=== PATIENT | female | born 1965 | race Hispanic/Latino ===

== ENCOUNTER → 2024-11-26 | Outpatient (CLI) | payer OTHER, MEDICARE ==
--- NOTE | 2024-11-29 11:17 | HMCIMG ---
DIGITAL bilateral DIAGNOSTIC MAMMOGRAM Technique: The digital mammographic examination of both breasts in craniocaudal, mediolateral oblique views along with CAD was obtained. History: This is a 59 years year-old female 1, para0 Ab1 . Patient has no family history of breast cancer. Patient has no complaint Reference:Prior mammogram from outside clinic from 07/28/2023 is available.. Breast composition: Breast composition C: The breasts are heterogeneously dense, which may obscure small masses. Finding: The digital mammographic examination of both breasts in craniocaudal and mediolateral oblique view along with CAD demonstrates moderately heterogeneously dense with nodular changes there was seen before of varying sizes. There are solitary dystrophic macrocalcification seen in both breasts some of them associated with this lesion suggesting a degenerating fibroadenoma.. There is no evidence of any dendritic mass, cluster microcalcification or architectural distortion. The retromammary fat appears to be normal. IMPRESSION: Due to moderately heterogeneously nodular densities seen in both breasts I would recommend follow-up bilateral breast sonogram.. FINAL ASSESSMENT: ACR: BI-RAD -0. Incomplete: need additional imaging evaluation. Management: Recall for additional imaging and/or comparison with prior examination(s). Likelihood of Cancer: N/A NOTE: IF A WORK-UP OF THIS PATIENT LEADS TO A BIOPSY, PLEASE FORWARD A COPY OF THE PATHOLOGY REPORT TO OUR OFFICE REQUIRED BY [employer] E[employer]ECTIVE JANUARY 12, 1994. A NEGATIVE MAMMOGRAM SHOULD NOT PRECLUDE BIOPSY OF A CLINICALLY PALPABLE SUSPICIOUS MASS, 10% OF BREAST CANCERS ARE MAMMOGRAPHICALLY OCCULT. THIS MAMMOGRAPHY FACILITY IS FULLY ACCREDITED BY THE FOOD AND DRUG [employer]MIN[employer]RATION (FDA). THANK YOU FOR THIS REFERRAL.
== END | disposition home or self-care (01) ==
LOC: RAH 08:27
PROVIDERS: ATTEND Family Medicine
DX: R92.333 Mammographic heterogeneous density, bilateral breasts (principal); R92.8 Other abnormal and inconclusive findings on diagnostic imaging of breast
CPT/HCPCS: 77066

== ENCOUNTER → 2025-01-11 | Outpatient (CLI) | payer OTHER, MEDICARE ==
--- NOTE | 2025-01-15 10:03 | HMCIMG ---
BILATERAL BREAST ULTRASOUND: CLINICAL HISTORY: Prior mammogram from 11/26/2024 has moderately dense breast for follow-up breast sonogram Finding: Real-time examination of the both breasts demonstrates heterogeneous echotexture throughout both the breasts. The right breast 11:00 there is a small cyst measuring 0.5 x 0.7 x 0.8 cm. The left breast at 1:00 there are 3 solid hypoechoic lesion the largest of this measuring 1.2 x 0.4 x 1.1 cm.Next largest hypoechoic lesion measuring 1.1 x 0.8 x 1.1 cm. The third hypoechoic lesion also at 1:00 measures 0.6 x 0.4 x 0.6 cm. There is also a cyst seen at 1:00 measuring 0.8 x 0.3 x 0.6 cm. The remaining left breast has no other lesion seen. IMPRESSION: Left breast has 3 hypoechoic lesion the largest of this is amenable for ultrasound-guided biopsy. Fibrocystic change with cysts seen in both breasts. FINAL ASSESSMENT: ACR: BI-RAD -4. Suspicious: Finding(s) without all the characteristics morphology of breast cancer but indicatingadefine probability of being malignant: biopsy should be considered.
== END | disposition home or self-care (01) ==
LOC: RAH 10:20
PROVIDERS: ATTEND Family Medicine
DX: N60.11 Diffuse cystic mastopathy of right breast (principal); N60.12 Diffuse cystic mastopathy of left breast; R92.8 Other abnormal and inconclusive findings on diagnostic imaging of breast

== ENCOUNTER → 2025-03-02 | Outpatient (CLI) | payer OTHER, MEDICARE ==
[2025-03-02 08:39] LABS: INR <= 0.93 (0.85-1.15)
--- NOTE | 2025-03-02 09:30 | NUR ---
ULTRASOUND GUIDED LEFT BREAST NODULE BIOPSY PROCEDURE PERFORMED BY DR. TRIPP DALE. PUNCTURE SITE LEFT BREAST AT 1 O'CLOCK AND PATIENT TOLERATED PROCEDURE WELL. SPECIMENS COLLECTED AND SENT TO LAB. TISSUE MARKER DEPLOYED AND BIOPSY NEEDLE REMOVED. END OF PROCEDURE AT 0915. DRESSING APPLIED AND NO BLEEDING NOTED. DISCHARGE INSTRUCTIONS GIVEN TO PATIENT AND VERBALIZED UNDERSTANDING. MAMMOGRAM OF LEFT BREAST TO FOLLOW FOR CONFIRMATION OF TISSUE MARKER PLACEMENT.
--- NOTE | 2025-03-02 10:29 | HMCIMG ---
PERCUTANEOUS ULTRASOUND-GUIDED BIOPSY OF left BREAST MASS: CLINICAL HISTORY: This is a 59 [id number] female with left breast lesion at 1:00 measuring 1.07 x 0.827. for ultrasound-guided biopsy. The risk and benefit was explained to the patient. The risks include bleeding and infection. The patient consented to the procedure. Procedure: Under ultrasound guidance left breast lesion was localized. After sterile prep and drape, 1% Xylocaine was used for local anesthetic. Using a 14-gauge Bard gun a total of 3 core biopsy was obtained. A biopsy marker was placed in the left breast lesion which appears to be in satisfactory position. The specimen was sent for histology and cell block. Patient tolerated procedure well. IMPRESSION: FINAL ASSESSMENT: Post-procedure Mammogram for Marker Placement. 1. PERCUTANEOUS ULTRASOUND-GUIDED BIOPSY OF left BREAST WITH SPECIMENS SENT FOR HISTOLOGY AND CELL BLOCK. THE PATIENT TOLERATED PROCEDURE WELL. PATHOLOGY REPORT IS PENDING. 2. PATIENT IS TO HAVE A POST BIOPSY MARKER PLACEMENT UNILATERAL left BREAST MAMMOGRAM.
--- NOTE | 2025-03-02 13:39 | HMCIMG ---
DIGITAL left DIAGNOSTIC MAMMOGRAM postbiopsy with placement of biopsy marker Technique: The digital mammographic examination of left breast in craniocaudal, mediolateral oblique views along with CAD was obtained. History: This is a 59 years year-old female 1, para0 Ab1 . Patient has no family history of breast cancer. Patient patient underwent left breast biopsy at 1:00. Reference:Prior mammogram from. Breast composition: Breast composition C: The breasts are heterogeneously dense, which may obscure small masses. Finding: The digital mammographic examination of left breast demonstrate a biopsy marker in satisfactory position. The study is unchanged from prior study.. IMPRESSION: Left breast biopsy appears to be in satisfactory position Pathology report is pending FINAL ASSESSMENT: Post-procedure Mammogram for Marker Placement. NOTE: IF A WORK-UP OF THIS PATIENT LEADS TO A BIOPSY, PLEASE FORWARD A COPY OF THE PATHOLOGY REPORT TO OUR OFFICE REQUIRED BY [employer] JANUARY 12, 1994. A NEGATIVE MAMMOGRAM SHOULD NOT PRECLUDE BIOPSY OF A CLINICALLY PALPABLE SUSPICIOUS MASS, 10% OF BREAST CANCERS ARE MAMMOGRAPHICALLY OCCULT. THIS MAMMOGRAPHY FACILITY IS FULLY ACCREDITED BY THE FOOD AND DRUG [employer]MIN[employer] (FDA). THANK YOU FOR THIS REFERRAL.
== END | disposition home or self-care (01) ==
LOC: RAH 07:48
PROVIDERS: ATTEND Family Medicine
DX: N63.21 Unspecified lump in the left breast, upper outer quadrant (principal); N60.22 Fibroadenosis of left breast; Z87.442 Personal history of urinary calculi; Z90.710 Acquired absence of both cervix and uterus; Z88.5 Allergy status to narcotic agent; Z88.1 Allergy status to other antibiotic agents; Z79.899 Other long term (current) drug therapy; Z98.890 Other specified postprocedural states
CPT/HCPCS: 19083; 77065; 85610; 85730; 36415; A4215 ×2; 88305